=== PATIENT | male | born 2000 | race African-American/Black ===

== ENCOUNTER 2022-06-02 19:15 | Emergency (ER) | payer SELFPAY ==
[~2022-06-02] VITALS: Ht 175.3 cm; Wt 59.0 kg
[2022-06-02] MEDS ORDERED: IBUPROFEN 600 MG TABLET PO ONE (19:30)
[2022-06-02 19:31] VITALS: BP 110/72
[2022-06-02] MEDS ORDERED: IBUP-1554 PO (19:46)
== END 2022-06-02 20:16 | disposition home or self-care (01) ==
LOC: EMS 19:23
DX: S46.911A Strain of unspecified muscle, fascia and tendon at shoulder and upper arm level, right arm, initial encounter (principal); S40.011A Contusion of right shoulder, initial encounter; W18.30XA Fall on same level, unspecified, initial encounter; Y93.61 Activity, american tackle football; Y92.89 Other specified places as the place of occurrence of the external cause; Y99.8 Other external cause status
CPT/HCPCS: 99283